=== PATIENT | male | born 1935 | race Caucasian/White ===

== ENCOUNTER 2017-01-14 18:50 | Emergency (ER) | payer OTHER, BC ==
[2017-01-14 19:01] VITALS: TEMP 98.2
--- NOTE | 2017-01-14 19:28 | EDPHY ---
HPI/HX/ROS/PE/MDM Narrative: CHIEF COMPLAINT: "I took a tumble," facial laceration, right rib pain HPI: The patient is an 81 y/o male complaining of a large facial laceration and right rib pain after falling while hiking about 45 minutes prior to arrival. He says his telescoping walking stick collapsed and he fell down striking the right side of his forehead on a rock and breaking his glasses. He did not lose consciousness and was able to hike back to the trailhead. He also complains of mild right rib pain, but denies acute shortness of breath. He denies vision changes, weakness, or paresthesias. He has a history that includes COPD and CAD , but only takes a baby aspirin daily and does not use anticoagulants. REVIEW OF SYSTEMS: Aside from elements discussed in the HPI, a comprehensive 10-point review of systems was reviewed and is negative. PMH: COPD, "heart block," "heart valve issue," CAD, sleep apnea, PE, cholecystectomy Prior medical records reviewed including admission 08/06/16 for abdominal pain. SOCIAL HISTORY: Former smoker PHYSICAL EXAM: General:Patient is alert, in no acute distress. ENT:Eyes are normal to inspection. Right eye normal. ENT inspection normal. Neck: Normal inspection. Full range of motion. Respiratory:No respiratory distress. Breath sounds normal bilaterally. Cardiovascular: Regular rate and rhythm. Strong peripheral pulses. Normal cap refill. Abdomen:The abdomen is nontender to palpation. There are no peritoneal signs. There are normal bowel sounds. Back: Normal to inspection. No tenderness to palpation. Skin: Normal color. No rash. Warm and dry. Bleeding 10cm total length T- shaped laceration extending down to skull over right eyebrow and forehead. 1cm laceration over anterior right knee Extremities: Right knee has significant effusion, other extremities are normal in appearance. Full range of motion. Neuro: Oriented x3. Normal motor function. Normal sensory function. ED Course: Study: CT of the Head Indication: Trauma Results: CT scan of the head was obtained. The results of the study are negative for intracranial hemorrhage. The study was read by the radiologist, Dr. Camp. I viewed the images myself on the PACS system. Study: CT of the Face Indication: Trauma Results: CT scan of the face was obtained. The results of the study are Right frontal soft tissue laceration. Subtle fracture along the edge of the right supraorbital rim. The study was read by the radiologist, Dr. Camp. I viewed the images myself on the PACS system. Study: Right rib x-rays Indication: Pain, trauma Results: Rib x-rays was obtained. The results of the study are no obvious fracture, no pneumothorax. Radiologist report pending. I viewed the images myself on the PACS system. Study: Right knee x-ray Indication: Trauma, pain Results: Knee x-ray was obtained. The results of the study are joint effusion, no fracture. Radiologist report pending. I viewed the images myself on the PACS system. Procedure: Laceration repair. Verbal consent was obtained from the patient. The deep T-shaped 10cm laceration on the right forehead above the brow was anesthetized using lidocaine. The wound was cleaned with standard ED protocol, draped and explored to its base with a gloved finger. Muscle involvement. No tendon injury was identified. The wound was repaired in multiple layer technique with 5 sutures 6-0 Vicryl and 15 sutures 5-0 Prolene. The wound repair was complex. The procedure was performed by myself, Dr. Loomis Patient will receive script for Keflex and will be placed in knee immobilizer and pressure wrap for right knee pain. MDM: This patient presents after mechanical fall while hiking. This has resulted in they severe deep laceration to his right forehead. This wound was extensively cleaned and repaired by myself. The edges are irregular and given the depth of soft tissue injury, which is essentially down to skull, I explained to the patient that scarring is likely, as is potential injury to facial muscle and/or nerve. We will place the patient on Keflex both for prophylaxis of this wound as well as the fact that there is a small nondisplaced facial bone fracture associated with it. Patient also has an impressive right knee effusion. This does not appear to be intra-articular and I suspect this is likely a consequence of being on aspirin. There is a small puncture wound associated with this which was irrigated and left open. The patient was placed in a compression wrap and given instructions to follow up with the plastic surgeon and orthopedist. CT is negative for intracranial injury. Chest x-ray reveals multiple rib fractures but no pneumothorax. Patient has some associated pain but there is no abdominal tenderness and he is breathing without difficulty. He will be given incentive spirometer. I discussed strict return precautions with the patient. I explained that he is high risk of complications from these multiple traumatic injuries given his age and comorbidities. I offered the patient admission but he declines. Addendum: I called the patient at home afternoon of 01/16 - he is doing well and will follow-up with his PCP this week. - Data Points Medications Given: Discontinued Medications Cephalexin HCl (Keflex) 500 mg PO EDNOW ONE PRN Reason: Protocol Stop: 01/14/17 21:04 Last Admin: 01/14/17 21:09 Dose: 500 mg General Time Seen by Provider: 01/14/17 18:55 Initial Vital Signs: Initial Vital Signs Temperature (C) 36.8 C 01/14/17 18:55 Heart Rate 82 01/14/17 18:55 Respiratory Rate 18 01/14/17 18:55 Blood Pressure 142/99 H 01/14/17 18:55 O2 Sat (%) 87 L 01/14/17 18:55 O2 Delivery Mode Room Air Allergies/Adverse Reactions: No Known Allergies Allergy (Unverified 05/05/16 07:29) Home Medications: Medication Instructions Recorded Aspirin EC [Aspirin EC 81 mg (*)] 81 mg PO DAILY #0 05/05/16 Atorvastatin Calcium [Lipitor 20 20 mg PO DAILY 05/05/16 mg (*)] Dexlansoprazole [Dexilant] 60 mg PO DAILY 05/05/16 Dutasteride [Avodart 0.5 MG (*)] 0.5 mg PO HS #0 05/05/16 Isosorbide Dinitrate [Isosorbide 20 mg PO DAILY 05/05/16 Dinitrate 20 mg (*)] Psyllium Husk [Metamucil] 0.52 gm PO DAILY 05/05/16 Tamsulosin HCl [Flomax 0.4 MG (*)] 0.8 mg PO HS #0 05/05/16 Breo Ellipta 100-25 Mcg Inh 1 puffs PO DAILY 07/22/16 Cephalexin [Keflex] 500 mg PO TID #21 cap 01/14/17 Departure - Departure Disposition: Home, Routine, Self-Care Clinical Impression: Forehead laceration, Laceration of right knee, Fracture of supraorbital rim, Contusion of rib on right side Condition: Good Instructions: Hydrocodone/Acetaminophen (By mouth), Laceration (ED), Acute Wound Care (ED), Rib Contusion (ED), Facial Laceration (ED) Additional Instructions: 1. Take Keflex (antibiotics) as prescribed. Be sure to complete the entire prescription. 2. Return in 7-10 days for suture removal. 3. Follow up with Dr. Keller, plastic surgeon, if you have persisting numbness or muscle weakness near your facial laceration. 4. Follow up with Dr. Barnhart in 3-5 days for reevaluation of your knee if you continue to have pain. 5. Return to the ED for symptoms of infection, severe pain, vision changes, or other worsening of condition. Referrals: Edmund Orozco MD [Primary Care Provider] - As per Instructions Justin Keller MD [Medical Doctor] - As per Instructions Prescriptions: Cephalexin [Keflex] 500 mg PO TID #21 cap Report Scribed for: Esvin Loomis Report Scribed by: Bina Villalobos Date of Report: 01/14/17 Time of Report: 19:28 Physician Review and Approval Statement: Portions of this note were transcribed by an ED scribe. I personally performed the history, physical exam, and medical decision making; and confirm the accuracy of the information in the transcribed note.
[2017-01-14] MEDS ORDERED: CEPHALEXIN 500 MG CAP PO ONE (21:03)
[2017-01-14] MEDS ORDERED: HYDROCOD/APAP 5/325 PREPACK#6 BTL TAKEHOME ONE (21:06)
[2017-01-14 22:32] VITALS: BP 152/95; PULSE 74; O2SAT 93
[2017-01-14 22:34] VITALS: RESP 16
== END 2017-01-14 22:33 | disposition home or self-care (01) ==
PROC: 0HQ1XZZ Repair Face Skin, External Approach (ICD-10-PCS; principal; 2017-01-14)
DX: S01.81XA Laceration without foreign body of other part of head, initial encounter (principal); S81.011A Laceration without foreign body, right knee, initial encounter; S02.81XA Fracture of other specified skull and facial bones, right side, initial encounter for closed fracture; S20.211A Contusion of right front wall of thorax, initial encounter; J44.9 Chronic obstructive pulmonary disease, unspecified; I25.10 Atherosclerotic heart disease of native coronary artery without angina pectoris; Z79.82 Long term (current) use of aspirin; Z87.891 Personal history of nicotine dependence; W01.198A Fall on same level from slipping, tripping and stumbling with subsequent striking against other object, initial encounter; Y92.89 Other specified places as the place of occurrence of the external cause; Y93.01 Activity, walking, marching and hiking
CPT/HCPCS: 12015; 70450; 70486; 71101; 73564; 99285; L1830

== ENCOUNTER 2017-01-17 09:22 | Emergency (ER) | payer OTHER, BC ==
[2017-01-17 09:38] VITALS: RESP 18
[2017-01-17 09:43] VITALS: TEMP 98.4
--- NOTE | 2017-01-17 09:50 | EDPHY ---
H & P Time Seen by Provider: 01/17/17 09:49 HPI/ROS: Chief complaint. Leg injury HPI. Patient is a 81-year-old male was seen in our emergency department 3 days ago after a fall while hiking. He has a rib fractures, big laceration to his head. He did have an x-ray of his knee which showed some foreign bodies and possible tendon rupture. However now he has increased swelling and bruising to the knee as well as to the right thigh. Some increased pain to this area. He is concerned because he has had previous blood clots and pulmonary embolus. ROS Constitutional. no fever/chills, no weakness Eyes. no problems with vision ENT. no sore throat, no nasal drainage Cardiovascular. no chest pain Respiratory. no shortness of breath, no cough Abdominal. no abdominal pain, no nausea/vomiting, no diarrhea . no problems urinating MS. Bruising and swelling that is increasing to the right knee and thigh Skin. no rash Lymph. no swollen glands Neuro. no headache, no dizziness, no difficulty walking or with speech Past Medical/Surgical History: Past medical history COPD, coronary artery disease, BPH, pulmonary embolus, angioplasty, repair of quadriceps tendon Social History: Single, nonsmoker, no alcohol Smoking Status: Former smoker Physical Exam: General Appearance: Alert well-developed male mild distress vital signs stable Eyes: Pupils equal and round no pallor or injection. ENT, sutures on the face appear to be healing without evidence of infection Respiratory: There are no retractions, lungs are clear to auscultation. Cardiovascular: Regular rate and rhythm. Gastrointestinal: Abdomen is soft and nontender, no masses, bowel sounds normal. Neurological: Awake and alert, sensory and motor exams grossly normal. Skin: Warm and dry, no rashes. Musculoskeletal: Neck is supple nontender. Extremities diffuse tenderness about the right knee. Medial swelling and bruising to the mid thigh Psychiatric: Patient is oriented X 3, there is no agitation. Constitutional: Initial Vital Signs Temperature (C) 36.9 C 01/17/17 09:36 Heart Rate 64 01/17/17 09:36 Respiratory Rate 18 01/17/17 09:36 Blood Pressure 127/72 H 01/17/17 09:36 O2 Sat (%) 91 L 01/17/17 09:36 O2 Delivery Mode Room Air Allergies/Adverse Reactions: No Known Allergies Allergy (Unverified 05/05/16 07:29) Home Medications: Medication Instructions Recorded Aspirin EC [Aspirin EC 81 mg (*)] 81 mg PO DAILY #0 05/05/16 Atorvastatin Calcium [Lipitor 20 20 mg PO DAILY 05/05/16 mg (*)] Dexlansoprazole [Dexilant] 60 mg PO DAILY 05/05/16 Dutasteride [Avodart 0.5 MG (*)] 0.5 mg PO HS #0 05/05/16 Isosorbide Dinitrate [Isosorbide 20 mg PO DAILY 05/05/16 Dinitrate 20 mg (*)] Psyllium Husk [Metamucil] 0.52 gm PO DAILY 05/05/16 Tamsulosin HCl [Flomax 0.4 MG (*)] 0.8 mg PO HS #0 05/05/16 Breo Ellipta 100-25 Mcg Inh 1 puffs PO DAILY 07/22/16 Cephalexin [Keflex] 500 mg PO TID #21 cap 01/14/17 Medical Decision Making - Diagnostics Imaging: Ultrasound of the right neck lower extremity shows no evidence of DVT. This is reviewed by me and discussed with Dr. Morocho X-ray of the right femur shows no evidence of fracture dislocation. There are still evidence of some retained foreign body superficially in the knee. ED Course/Re-evaluation: Examination of the knee I can't really find any obvious foreign bodies. Does have some scabs and superficial abrasions Differential Diagnosis: Patient remained stable. He and I discussed imaging study results, treatment plan, criteria for return importance of follow-up. He expresses understanding and agreement. I considered occult fracture, DVT, dislocation - Data Points Medications Given: Discontinued Medications Oxycodone/Acetaminophen (Percocet 5/325) 1 tab PO EDNOW ONE Stop: 01/17/17 10:13 Last Admin: 01/17/17 10:13 Dose: 1 tab Departure - Departure Disposition: Home, Routine, Self-Care Clinical Impression: Acute knee contusion Condition: Good Instructions: Contusion in Adults (ED) Additional Instructions: Keep leg elevated as much as possible. Activity as tolerated. Return for worsening symptoms. Sutures out of your face in 2-3 days Referrals: Edmund Orozco MD [Primary Care Provider] - 2-3 days without fail
[2017-01-17] MEDS ORDERED: OXYCODONE/APAP 5/325 TAB ONE (10:10)
[2017-01-17] MEDS ORDERED: OXYCODONE/APAP 5/325 TAB PO ONE (10:12)
[2017-01-17 12:12] VITALS: BP 144/69; PULSE 57; O2SAT 90
== END 2017-01-17 12:12 | disposition home or self-care (01) ==
DX: S80.01XD Contusion of right knee, subsequent encounter (principal); J44.9 Chronic obstructive pulmonary disease, unspecified; I25.10 Atherosclerotic heart disease of native coronary artery without angina pectoris; Z87.891 Personal history of nicotine dependence; Z79.82 Long term (current) use of aspirin; W19.XXXD Unspecified fall, subsequent encounter

== ENCOUNTER 2017-01-24 18:29 | Inpatient (IN) | payer OTHER, BC ==
--- NOTE | 2017-01-24 19:10 | EDPHY ---
H & P Time Seen by Provider: 01/24/17 19:08 HPI/ROS: CHIEF COMPLAINT: Right knee swelling and pain. HISTORY OF PRESENT ILLNESS: The patient is an 81-year-old male with a history of PE who presents with worsening right leg pain and swelling. The patient was initially seen 10 days ago in the ER after a fall while hiking. He was placed on Keflex at that time for a knee effusion, which he finished 2 days ago. The knee swelling is still present and he has pain when he tries to walk. He has no pain at rest. The swelling is significant enough to cause him difficulty bending his right leg. He denies fever, recent sickness, chest pain, shortness of breath. He takes a daily baby aspirin. REVIEW OF SYSTEMS: A complete 10-point review of systems was performed and is negative except for those items mentioned in the HPI. Past Medical/Surgical History: COPD, CAD, BPH, obstructive sleep apnea, PE. Social History: Former smoker. Smoking Status: Former smoker Physical Exam: General Appearance: Alert, no distress Eyes: Pupils equal and round, no conjunctival pallor or injection ENT, Mouth: Mucous membranes moist Neck: Normal inspection Respiratory: Lungs are clear to auscultation Cardiovascular: Regular rate and rhythm Gastrointestinal: Abdomen is soft and non-tender Neurological: A&O, nonfocal, normal gait Skin: Warm and dry, no rash Extremities: Right le+ pedal edema from lower thigh to foot with associated erythema on medial aspect of thigh and anterior aspect of lower leg. He has a scab over knee with surrounding erythema but no erythema on lateral aspect of knee. Knee joint effusion. Psychiatric: Mood and affect normal Constitutional: Initial Vital Signs Temperature (C) 36.7 C 01/24/17 18:43 Heart Rate 71 01/24/17 18:43 Respiratory Rate 18 01/24/17 18:43 Blood Pressure 141/85 H 01/24/17 18:43 O2 Sat (%) 92 01/24/17 18:43 O2 Delivery Mode Room Air Allergies/Adverse Reactions: No Known Allergies Allergy (Verified 01/24/17 18:42) Home Medications: Medication Instructions Recorded Aspirin EC [Aspirin EC 81 mg (*)] 81 mg PO DAILY #0 05/05/16 Atorvastatin Calcium [Lipitor 20 20 mg PO DAILY 05/05/16 mg (*)] Dexlansoprazole [Dexilant] 60 mg PO DAILY 05/05/16 Dutasteride [Avodart 0.5 MG (*)] 0.5 mg PO HS #0 05/05/16 Isosorbide Dinitrate [Isosorbide 20 mg PO HS 05/05/16 Dinitrate 20 mg (*)] Tamsulosin HCl [Flomax 0.4 MG (*)] 0.8 mg PO HS #0 05/05/16 Psyllium Husk (with Sugar) 1 each PO DAILY 01/24/17 [Metamucil Packet] Medical Decision Making - Diagnostics Imaging: Study: Ultrasound of the: RLE. Indication: Swelling, pain, trauma. Results: No major deep venous thrombosis right leg. The study was read by the radiologist, Dr. Baird. I viewed the images myself on the PACS system. Procedures: Procedure: Arthrocentesis. Indication: Evaluation for the possibility of septic joint. Risks, benefits, alternatives of the procedure were discussed with the patient and consent obtained. The patient was prepped and draped in the usual sterile fashion over the right knee joint. Local anesthesia was provided with 1% lidocaine. The joint space was entered with a 18 gauge needle and 10 cc of clear yellowish fluid was obtained. There were no complications. The procedure was performed by myself. ED Course/Re-evaluation: This patient presents with right lower extremity erythema and swelling as well as a knee effusion after a traumatic injury. Arthrocentesis performed by me to rule out a septic joint. Synovial fluid WBCs 6800, not consistent with septic joint. However he does have uric acid crystals on preliminary analysis and may have acute gout. RLE ultrasound obtained and reveals no evidence of DVT; no evidence of DVT. An IV was established and labs ordered. Ancef 1 g IV given for cellulitis. He does not meet SIRS criteria. 2046: Consulted with Dr. Rivera, hospitalist. She accepts admission. Differential Diagnosis: Differential diagnosis includes though it is not limited to fracture, dislocation, tendon disruption, neurovascular compromise. - Data Points Laboratory Results: Laboratory Results 01/24/17 19:43 01/24/17 19:43 01/24/17 01/24/17 19:42 19:40 Fl Pathologist Review MD David TYSON MD Synovial Crystals COMMENT H (NONE SEEN) Microbiology Results: MICROBIOLOGY 01/24/17 19:23 Synovial Fluid - Aspirate Gram Stain - Final 01/24/17 19:23 Synovial Fluid - Aspirate Anaerobic Culture - Preliminary Medications Given: Discontinued Medications Cefazolin Sodium/Dextrose (Ancef 1 Gm (Premix)) 50 mls @ 200 mls/hr IV EDNOW ONE PRN Reason: Protocol Stop: 01/24/17 20:59 Last Admin: 01/24/17 20:52 Dose: 50 mls Tiotropium [place] (Spiriva Handihaler) 18 mcg IH DAILY CRISTINO Stop: 07/24/17 08:59 Last Admin: 01/25/17 09:41 Dose: Not Given Departure - Departure Disposition: [facility] Acute Clinical Impression: Cellulitis Qualifiers: Site of cellulitis of extremity: lower extremity Laterality: right Condition: Fair Report Scribed for: Kristina Stevens Report Scribed by: Alban Dixon Date of Report: 01/24/17 Time of Report: 19:09 Physician Review and Approval Statement: 01/24/17 19:09 Portions of this note were transcribed by a biomedical equipment specialist. I personally performed a history, physical exam, medical decision making, and confirmed accuracy of information the transcribed note.
[2017-01-24 19:56] LABS: % IMMATURE GRANULYOCYTES 0.2 % (0.0-1.1); ABSOLUTE IMMATURE GRANULOCYTES 0.01 10^3/uL (0.00-0.10); ADD DIFF? NO; ADD MORPH? NO; ADD SCAN? NO; ATYPICAL LYMPHOCYTE FLAG 10 (0-99); FRAGMENT RBC FLAG 0 (0-99); HEMATOCRIT 39.1 % (40.0-51.0); HEMOGLOBIN 13.1 g/dL (13.7-17.5); LEFT SHIFT FLG 0 (0-99); LIPEMIA HEMOLYSIS FLAG 80 (0-99); MEAN CELL HEMOGLOBIN 33.5 pg (27.9-34.1); MEAN CELL HEMOGLOBIN CONCENTR. 33.5 g/dL (32.4-36.7); MEAN PLATELET VOLUME 11.5 fL (8.7-11.7); PLATELET CLUMPS FLAG 10 (0-99); PLATELET COUNT 219 10^3/uL (150-400); RED BLOOD CELL COUNT 3.91 10^6/uL (4.40-6.38); RED CELL DISTRIBUTION WIDTH 14.4 % (11.5-15.2)
[2017-01-24 20:21] LABS: ANION GAP 10 mEq/L (8-16); CALCIUM 9.1 mg/dL (8.5-10.4); CARBON DIOXIDE 27 mEq/l (22-31); CHLORIDE 106 mEq/L (97-110); CREATININE 1.1 mg/dL (0.7-1.3); GLOMERULAR FILTRATION RATE > 60; GLUCOSE 102 mg/dL (70-100); POTASSIUM 4.3 mEq/L (3.5-5.2); SODIUM 143 mEq/L (134-144)
[2017-01-24] MEDS ORDERED: ONDANSETRON 4 MG/2 ML VIAL IVP PRN (20:50)
[2017-01-24] MEDS ORDERED: ACETAMINOPHEN 325 MG TAB PO PRN (20:50)
[2017-01-24] MEDS ORDERED: ONDANSETRON DISINTEGRATING 4 MG TAB PO PRN (20:50)
[2017-01-24 21:43] LABS: WBC, SYNOVIAL FLUID 6883 /mm3 (0-150)
[2017-01-24] MEDS ORDERED: ALBUTEROL 3 ML DEYVIAL IH PRN (23:59)
[2017-01-25] MEDS: VANCOMYCIN 1.25 GM in D5W 250 ML IV SCH ×2 (02:13→12:58)
--- NOTE | 2017-01-25 02:32 | PDGENHP ---
History and Physical - Chief Complaint right knee pain, fall 2 weeks ago - History of Present Illness 81 yo male with h/o COPD, CAD and ALISA presents to ED for the 3rd time since a fall while hiking on 01/14/2017. He was hiking in [place] and tumbled [place]. He suffered a eric-orbital laceration and had a negative head CT in the ED that day. He also suffered 5 right rib fractures and a right knee injury. His right knee pain was initially localized to the medial distal thigh. Initial knee xray showed changes consistent with his previous quadriceps tendon rupture, along with a medial hematoma. He continues to have eric-patellar swelling and medial pain. He was treated with Keflex for 7 days with no significant improvement. He has redness and persistent swelling of right knee and distal RLE, causing difficulty walking. He denies instability or locking. No fevers or chills. In the ED, he underwent arthrocentesis and was given 1 g IV Ancef. He is admitted to the hospital for further management. With respect to his COPD, he denies home O2 use and doesn't use inhalers regularly. He states his baseline O2 sat is in the upper 80's, but he refuses to use home oxygen. He currently denies CP, SOB, cough or fever. He also has a h/o ALISA, but hasn't used his CPAP in 10 days and "does fine without it". History Information - Allergies/Home Medication List Allergies/Adverse Reactions: No Known Allergies Allergy (Verified 01/24/17 18:42) Home Medications: Aspirin EC [Aspirin EC 81 mg (*)] 81 mg PO DAILY #0 05/05/16 [Last Taken ] Atorvastatin Calcium [Lipitor 20 mg (*)] 20 mg PO DAILY 05/05/16 [Last Taken ] Dexlansoprazole [Dexilant] 60 mg PO DAILY 05/05/16 [Last Taken 01/24/17] Dutasteride [Avodart 0.5 MG (*)] 0.5 mg PO HS #0 05/05/16 [Last Taken 01/23/17] Isosorbide Dinitrate [Isosorbide Dinitrate 20 mg (*)] 20 mg PO HS 05/05/16 [ Last Taken 01/23/17] Tamsulosin HCl [Flomax 0.4 MG (*)] 0.8 mg PO HS #0 05/05/16 [Last Taken ] Psyllium Husk (with Sugar) [Metamucil Packet] 1 each PO DAILY 01/24/17 [Last Taken 01/24/17] I have personally reviewed and updated: family history, medical history, social history, surgical history - Past Medical History coronary artery disease, COPD Additional medical history: BPH, ALISA, h/o PE - Surgical History Additional surgical history: right quadriceps tendon repair - Family History Positive for: non-pertinent - Social History Smoking Status: Former smoker Review of Systems ROS: 10pt was reviewed & negative except for what was stated in HPI & below Physical Exam Temp Pulse Resp BP Pulse Ox 36.7 C 60 16 138/68 H 95 01/24/17 22:01 01/24/17 22:20 01/24/17 22:20 01/24/17 22:20 01/24/17 22:20 O2 (L/minute) 3 Constitutional: no apparent distress Eyes: PERRL Ears, Nose, Mouth, Throat: moist mucous membranes Cardiovascular: regular rate and rhythym Respiratory: no respiratory distress, clear to auscultation, reduced air movement Gastrointestinal: normoactive bowel sounds, soft, non-tender abdomen Skin: warm Musculoskeletal: other (RLE with marked pre and eric-patellar edema, with palpable hematoma of medial distal femur region, associated with erythema extending to ankle, 2+ LE pitting edema RLE) Neurologic: AAOx3 Psychiatric: interacting appropriately Lab Data & Imaging Review 01/25/17 05:38 01/24/17 19:43 WBC 5.02 10^3/uL (3.80-9.50) 01/24/17 19:43 RBC 3.91 10^6/uL (4.40-6.38) L 01/24/17 19:43 Hgb 13.1 g/dL (13.7-17.5) L 01/24/17 19:43 Hct 39.1 % (40.0-51.0) L 01/24/17 19:43 MCV 100.0 fL (81.5-99.8) H 01/24/17 19:43 MCH 33.5 pg (27.9-34.1) 01/24/17 19:43 MCHC 33.5 g/dL (32.4-36.7) 01/24/17 19:43 RDW 14.4 % (11.5-15.2) 01/24/17 19:43 Plt Count 219 10^3/uL (150-400) 01/24/17 19:43 MPV 11.5 fL (8.7-11.7) 01/24/17 19:43 Neut % (Auto) 59.4 % (39.3-74.2) 01/24/17 19:43 Lymph % (Auto) 20.3 % (15.0-45.0) 01/24/17 19:43 [place] % (Auto) 14.9 % (4.5-13.0) H 01/24/17 19:43 Eos % (Auto) 4.6 % (0.6-7.6) 01/24/17 19:43 Baso % (Auto) 0.6 % (0.3-1.7) 01/24/17 19:43 Nucleat RBC Rel Count 0.0 % (0.0-0.2) 01/24/17 19:43 Absolute Neuts (auto) 2.98 10^3/uL (1.70-6.50) 01/24/17 19:43 Absolute Lymphs (auto) 1.02 10^3/uL (1.00-3.00) 01/24/17 19:43 Absolute Monos (auto) 0.75 10^3/uL (0.30-0.80) 01/24/17 19:43 Absolute Eos (auto) 0.23 10^3/uL (0.03-0.40) 01/24/17 19:43 Absolute Basos (auto) 0.03 10^3/uL (0.02-0.10) 01/24/17 19:43 Absolute Nucleated RBC 0.00 10^3/uL (0-0.01) 01/24/17 19:43 Immature Gran % 0.2 % (0.0-1.1) 01/24/17 19:43 Immature Gran # 0.01 10^3/uL (0.00-0.10) 01/24/17 19:43 Sodium 143 mEq/L (134-144) 01/24/17 19:43 Potassium 4.3 mEq/L (3.5-5.2) 01/24/17 19:43 Chloride 106 mEq/L (97-110) 01/24/17 19:43 Carbon Dioxide 27 mEq/l (22-31) 01/24/17 19:43 Anion Gap 10 mEq/L (8-16) 01/24/17 19:43 BUN 16 mg/dL (7-23) 01/24/17 19:43 Creatinine 1.1 mg/dL (0.7-1.3) 01/24/17 19:43 Estimated GFR > 60 01/24/17 19:43 Glucose 102 mg/dL (70-100) H 01/24/17 19:43 Calcium 9.1 mg/dL (8.5-10.4) 01/24/17 19:43 Synovial Source SYNOVIAL 01/24/17 19:42 Synovial Color YELLOW (CLS/PALE YL) H 01/24/17 19:42 Synovial Appearance CLOUDY (CLEAR) H 01/24/17 19:42 Synovial WBC 6883 /mm3 (0-150) H 01/24/17 19:42 Synovial RBC 3420 /mm3 (0-0) H 01/24/17 19:42 Synovial Neutrophils 71 % (0-25) H 01/24/17 19:42 Synovial Lymphocytes 1 % 01/24/17 19:42 Synov Monos/Macrophage 28 % 01/24/17 19:42 Assessment & Plan Assessment: Pre-patellar bursitis +/- hematoma and suspected cellulitis in setting of trauma - less likely septic joint. LE duplex neg for DVT. S/P arthrocentesis, no orgs on gram stain. Cx pending, though fluid analysis not terribly impressive for septic joint. Discussed case with Dr. Martínez ortho. They will consult today. MRI ordered to eval for fluid collection / hematoma or tendinous / ligamentous injury (+h/o quadriceps tendon rupture s/p repair). Given failure of Keflex, will cover with Vanco for now. ID consult requested. PT/OT evals planned. COPD - Reviewed CXR from 09/2016, which showed hyperexpansion. Currently, no e/ o acute exacerbation, though requiring 2-3 LPM O2. He reports refusing home oxygen and notes he usually runs in the high 80's on room air. Hypoxemia may have contributed to his fall in [employer]. Will start Spiriva and give prn nebs. Acute / ?chronic hypoxemia - No tachycardia or pleuritic symptoms, but if O2 requirement increases or he develops more symptoms, would consider ruling out PE. He may qualify for home oxygen but sounds like he won't accept this. CAD - stable, continue statin. Hold ASA for now until imaging and further diagnostics / plan confirmed regarding knee injury. BPH - continue Avodart, Flomax ALISA - he has not been using his CPAP at home, discussed importance of treating his ALISA. He does not want CPAP here, will continue O2 as needed. H/O PE - traumatic event several years ago. LE duplex neg for DVT here. Full code DVT PPLX - Lovenox Disposition - Admit to inpatient as will likely require >48 hrs hospitalization due to RLE injury and possible infection.
[2017-01-25 06:11] LABS: ADD DIFF? NO; ADD MORPH? NO; ADD SCAN? NO; ATYPICAL LYMPHOCYTE FLAG 10 (0-99); FRAGMENT RBC FLAG 0 (0-99); HEMATOCRIT 36.8 % (40.0-51.0); HEMOGLOBIN 12.3 g/dL (13.7-17.5); LEFT SHIFT FLG 0 (0-99); LIPEMIA HEMOLYSIS FLAG 80 (0-99); MEAN CELL HEMOGLOBIN 33.3 pg (27.9-34.1); MEAN CELL HEMOGLOBIN CONCENTR. 33.4 g/dL (32.4-36.7); MEAN CELL VOLUME 99.7 fL (81.5-99.8); MEAN PLATELET VOLUME 11.4 fL (8.7-11.7); PLATELET CLUMPS FLAG 0 (0-99); PLATELET COUNT 193 10^3/uL (150-400); RED BLOOD CELL COUNT 3.69 10^6/uL (4.40-6.38); RED CELL DISTRIBUTION WIDTH 14.3 % (11.5-15.2)
[2017-01-25] MEDS ORDERED: TIOTROPIUM INHALER 18 MCG/DOSE 5 DOSE/MDI IH SCH (09:00)
[2017-01-25] MEDS ORDERED: NON-FORMULARY NEW DRUG (Dexlansoprazole [Dexilant] 60 MG) PO SCH (09:00)
[2017-01-25] MEDS ORDERED: TAMSULOSIN HCL 0.4 MG CAP PO SCH ×2 (10:46→21:00)
[2017-01-25] MEDS ORDERED: DUTASTERIDE 0.5 MG CAP PO SCH ×2 (10:46→21:00)
[2017-01-25] MEDS: ATORVASTATIN CALCIUM 20 MG TAB PO SCH (11:07)
[2017-01-25] MEDS: guaiFENesin 600 MG TAB.ER PO SCH ×2 (11:08→21:15)
[2017-01-25] MEDS: PANTOPRAZOLE SODIUM 40 MG TAB PO SCH (11:08)
[2017-01-25] MEDS: ENOXAPARIN 40 MG/0.4 ML SYR SC SCH (11:18)
[2017-01-25] MEDS: DUTASTERIDE 0.5 MG CAP PO SCH (11:22)
[2017-01-25] MEDS: TAMSULOSIN HCL 0.4 MG CAP PO SCH (11:22)
--- NOTE | 2017-01-25 12:48 | HOSPPROG ---
Hospitalist Progress Note Assessment/Plan: 81 yo M with hx of COPD, CAD admitted with right knee pain in the setting of fall 2 weeks prior with large hematoma and partial quadriceps tendon tear # knee hematoma and partial quadriceps tear: s/p fall about 2 weeks ago with ongoing pain and difficulty with mobility, MRI not showing any other acute findings and arthrocentesis not c/w infection. Will d/w ortho to see if any further intervention indicated. PT/OT involved. # pre patellar bursitis: in the setting of recent fall and injuries as above. He is non septic appearing however he notes that his sxs got worse after completing his last course of abx. Will continue IV vancomycin for now. Synovial cultures pending. # multiple rib fractures: patient with 5 right sided rib fractures s/p fall 2 weeks ago, will continue IS, does have cough but no other s/s of PNA at this time. Will get repeat CXR in am. # chronic copd with chronic hypoxic respiratory failure: patient reports o2 sats in the 80s at home, currently in low 90s on 3L, patient refuses to wear o2 at home, has refused inhalers as well. No evidence of acute exacerbation. # BPH: with continue avodart and tamsulosin, notes continued urinary issues # CAD: no e/o acute issues # diego: with intermittent use of cpap # dispo: IP status, patient will need > 48 hours stay for eval/mgmt of above given limited mobility and inability to perform ADLs safely Patient new to my care. Old records reviewed and summarized as above. Care plan reviewed with ortho. Subjective: no significant overnight events, patient continues to have pain in the medial aspect of his right thigh and difficulty ambulating Objective: Vital Signs Temp Pulse Resp BP Pulse Ox 36.4 C 62 16 137/73 H 90 L 01/25/17 04:32 01/25/17 04:32 01/25/17 04:32 01/25/17 04:32 01/25/17 04:32 Laboratory Results 01/25/17 05:38 01/24/17 01/25/17 01/26/17 05:59 05:59 05:59 Intake Total 700 Output Total 50 Balance 650 elderly awake alert nad anicteric op clear rrr no mrg cta b with dec bs throughout wet cough soft nt nd RLE with 1+ pitting edema, ecchymoses and edema around right knee with area of induration in distal medial femur warm dry well perfused otherwise oriented appropriate - Time Spent With Patient Time Spent with Patient: greater than 35 minutes Time Spent with Patient: Greater than 35 minutes spent on this patients care, greater than 50% of time spent counseling, educating, and coordinating care regarding the above mentioned plan. ICD10 Worksheet Patient Problems: Problems Problem Status Onset Cholecystitis with cholelithiasis Acute Cellulitis of right knee Acute
--- NOTE | 2017-01-25 15:24 | PDCONSULT ---
Guest Experience Representative Note: Jesse Myers is a pleasant 81 yo male, being evaluated for r/o septic right knee. Patient reports that he fell last tuesday when a stair case collapsed under him causing him to fall down approximately 6 feel and hit his forehead, and inside of right knee. Patient reports that he was fine at the time, drove himself to the ED where he was evaluated, had forehead laceration stitched up, and patient reports they "washed out a small poke hole on" on his right knee. Over the next week patient reports that he noticed the knee swell and become red /purple and thought it was a "hematoma." Patient returned back to the ED where they performed an Ultrasound which did not demonstrate any DVT. but ED was concerned for septic knee, so they tapped his knee and admitted him for IV abx. throughout this all, patient states he did not have much pain except during the first 2 days after the fall, and only lacked knee rom due to the swelling of the "superficial hematoma." patient denies fevers, chills, n/v/d/c. patient denies any sob worse than his base line. Past Medical history: CAD, SOB at baseline, COPD, heart valve issue (patient is unsure which valve) Surgical history: right quad repair in 2012, cholesystectomy, left ankle orif Family history: Denies allergies: NKDA Home meds: Aspirin EC [Aspirin EC 81 mg (*)] 81 mg PO DAILY #0 05/05/16 [Last Taken 01/24] Atorvastatin Calcium [Lipitor 20 mg (*)] 20 mg PO DAILY 05/05/16 [Last Taken ] Dexlansoprazole [Dexilant] 60 mg PO DAILY 05/05/16 [Last Taken 01/24/17] Dutasteride [Avodart 0.5 MG (*)] 0.5 mg PO HS #0 05/05/16 [Last Taken 01/23/17] Isosorbide Dinitrate [Isosorbide Dinitrate 20 mg (*)] 20 mg PO HS 05/05/16 [ Last Taken 01/23/17] Tamsulosin HCl [Flomax 0.4 MG (*)] 0.8 mg PO HS #0 05/05/16 [Last Taken ] Psyllium Husk (with Sugar) [Metamucil Packet] 1 each PO DAILY 01/24/17 [Last Taken 01/24/17] labs reviewed: blood cultures pending, synovial fluid not consistent w/ infection, cbc w/ down trending wbc physical exam: w/ 1+ pitting edema, large area of ecchymosis and edema surrounding right knee w/ area of induration in distal femur, active rom: 0-80 without signifcant pain, passive rom: guarded0-90, nvid w/ brisk cap refill, 2+ pt/dp pulses assessment/plan: 81 yo m s/p fall 2 weeks ago, now with large right knee hematoma, orthopedics consulted for r/o septic knee and evaluate quad tendon for possible repair -MRI demonstrates: large subcutaneous hematoma, partial tear of the deep fibers of the quadriceps tendon at the upper pole of the patellar attachment -continue working with physical therapy for transfer training -recommend continued IS for cough addendum. painful sub Q hematoma. gentle knee ROM. WBAT. fall risk precautions. MRI not concerrning for infection at this point. Follup clinically. fu in my clinic in 2 weeks for repeat clinical exam Dr Delfina Lenz for Orthopedics [id number]
[2017-01-25] MEDS ORDERED: ISOSORBIDE DINITRATE 20 MG TAB PO SCH (21:00)
--- NOTE | 2017-01-26 01:29 | CPEKG ---
Heart Rate: 57 RR Interval: 1053 P-R Interval: 224 QRSD Interval: 94 QT Interval: 424 QTC Interval: 413 P Broseley: 34 QRS Broseley: 46 T Wave Broseley: -15 EKG Severity - ABNORMAL ECG - EKG Impression: SINUS RHYTHM EKG Impression: FIRST DEGREE AV BLOCK EKG Impression: PROBABLE ANTEROLATERAL INFARCT, OLD EKG Impression: NONSPECIFIC T ABNORMALITIES, INFERIOR LEADS Electronically Signed By: Breanne Iniguze 27-Jan-2017 04:17:20
[2017-01-26] MEDS: VANCOMYCIN 1.25 GM in D5W 250 ML IV SCH (02:14)
[2017-01-26 06:17] LABS: ANION GAP 9 mEq/L (8-16); CALCIUM 7.7 mg/dL (8.5-10.4); CARBON DIOXIDE 22 mEq/l (22-31); CHLORIDE 111 mEq/L (97-110); CREATININE 0.7 mg/dL (0.7-1.3); GLOMERULAR FILTRATION RATE > 60; GLUCOSE 93 mg/dL (70-100); POTASSIUM 3.4 mEq/L (3.5-5.2); SODIUM 142 mEq/L (134-144)
[2017-01-26] MEDS: DUTASTERIDE 0.5 MG CAP PO SCH (09:29)
[2017-01-26] MEDS: guaiFENesin 600 MG TAB.ER PO SCH (09:29)
[2017-01-26] MEDS: PANTOPRAZOLE SODIUM 40 MG TAB PO SCH (09:30)
[2017-01-26] MEDS: TAMSULOSIN HCL 0.4 MG CAP PO SCH (09:30)
[2017-01-26] MEDS: ATORVASTATIN CALCIUM 20 MG TAB PO SCH (09:30)
[2017-01-26] MEDS ORDERED: VANCOMYCIN HCL/NORMAL SALINE 250 ML IV SCH (14:00)
[2017-01-26] MEDS: ENOXAPARIN 40 MG/0.4 ML SYR SC SCH (14:38)
--- NOTE | 2017-01-26 17:04 | HOSPPROG ---
Hospitalist Progress Note Assessment/Plan: 81 yo M with hx of COPD, CAD admitted with right knee pain in the setting of fall 2 weeks prior with large hematoma and partial quadriceps tendon tear # knee hematoma and partial quadriceps tear: s/p fall about 2 weeks ago with ongoing pain and difficulty with mobility, MRI not showing any other acute findings and arthrocentesis not c/w infection. Ortho evaluated and recommending knee immobilizer, f/u in clinic in 1-2 weeks. Patient refuses immobilizer. # pre patellar bursitis: in the setting of recent fall and injuries as above. non septic, mri not c/w infection, tap without e/o infection. Will dc vanco and treat with another few days of keflex. Cultures negative. # multiple rib fractures: patient with 5 right sided rib fractures s/p fall 2 weeks ago, will continue IS, repeat cxr showing likely atelectasis rather than pna, no real pain that he is complaining of at this point. # chronic copd with chronic hypoxic respiratory failure: patient reports o2 sats in the 80s at home, 86% here on RA and mid 90s on 3-4L. Would benefit from home o2 if he is amenable. No e/o acute exacerbation at this time and patient declines inhalers. # BPH: with continue avodart and tamsulosin, notes continued urinary issues # CAD: no e/o acute issues # diego: with intermittent use of cpap # dispo: IP status, patient will need > 48 hours stay for eval/mgmt of above given limited mobility and inability to perform ADLs safely Subjective: no significant overnight events, patient states he does not want to wear the brace that ortho brought for him, he is walking ok without it Objective: Vital Signs Temp Pulse Resp BP Pulse Ox 36.9 C 55 L 16 129/71 H 86 L 01/26/17 07:27 01/26/17 07:27 01/26/17 07:27 01/26/17 07:27 01/26/17 14:14 Laboratory Results 01/25/17 05:38 01/26/17 05:45 01/25/17 01/26/17 01/27/17 05:59 05:59 05:59 Intake Total 700 2860 Output Total 50 1950 850 Balance 650 910 -850 elderly awake alert nad anicteric op clear rrr no mrg cta b with dec bs throughout wet cough soft nt nd RLE with 1+ pitting edema, ecchymoses and edema around right knee with area of induration in distal medial femur warm dry well perfused otherwise oriented appropriate - Time Spent With Patient Time Spent with Patient: greater than 35 minutes Time Spent with Patient: Greater than 35 minutes spent on this patients care, greater than 50% of time spent counseling, educating, and coordinating care regarding the above mentioned plan. ICD10 Worksheet Patient Problems: Problems Problem Status Onset Cellulitis Acute Cholecystitis with cholelithiasis Acute
[2017-01-26 17:28] VITALS: BP 124/73; PULSE 62; RESP 12; TEMP 98.2; O2SAT 88
[2017-01-26] MEDS ORDERED: CEPHALEXIN 500 MG CAP PO SCH (18:00)
--- NOTE | 2017-01-26 18:14 | PDDCSUM ---
Discharge Summary Discharge Summary: Dates of service 01/25-01/26/17 Discharge dx: # knee hematoma # partial quad tendon rupture # pre patellar bursitis # rib fxs # chronic copd and chronic resp failure consultations: ortho, ID Procedures: knee arthrocentesis, lower extremity MRI, LE US Hospital course by problem: # knee hematoma and partial quadriceps tear: plan for knee immobilizer, f/u with ortho in 1 week # pre patellar bursitis: in the setting of recent fall and injuries as above. non septic, mri not c/w infection, tap without e/o infection. Will dc vanco and treat with another few days of keflex. Cultures negative. # multiple rib fractures: patient with 5 right sided rib fractures s/p fall 2 weeks ago, will continue IS, repeat cxr showing likely atelectasis rather than pna, no real pain that he is complaining of at this point. # chronic copd with chronic hypoxic respiratory failure: patient reports o2 sats in the 80s at home, 86% here on RA and mid 90s on 3-4L. Would benefit from home o2 if he is amenable. No e/o acute exacerbation at this time and patient declines inhalers. # BPH: with continue avodart and tamsulosin, notes continued urinary issues # CAD: no e/o acute issues # diego: with intermittent use of cpap dc home f/u with ortho/pcp >35 minutes spent in dc more than half in face to face cousneling of gay regarding dc plan and f/u care
--- NOTE | 2017-01-26 19:28 | GCON ---
INFECTIOUS DISEASE CONSULTATION DATE OF CONSULTATION: 01/26/2017 REFERRING PHYSICIAN: Oumou Downey MD REASON FOR CONSULTATION: Possible prepatellar septic bursitis. HISTORY OF PRESENT ILLNESS: Patient is an 81-year-old male who [place]. The patient had a periorbital laceration on the right as well as multiple rib fractures and a right knee injury. The patient was seen in the emergency department shortly af ter his fall. He underwent suturing of the periorbital laceration and was prescribed 7 days of ceph alexin based on concerns about infection as this laceration was deep to the bone. The patient descr ibes having persistent knee pain and swelling with a violaceous and erythematous hue. Most of his p ain is more prominent over the medial aspect of the knee and thigh. The patient was admitted for fu rther evaluation of these complaints and an MRI was performed, which showed a subcutaneous hematoma over the anteromedial aspect of the right knee as well as a partial tear of the quadriceps tendon. Arthrocentesis was performed, yielding 6883 white blood cells, 3420 red blood cells with 71% neutrop hils; rare intracellular monosodium urate crystals were also seen. Blood cultures and culture of th e synovial fluid have remained negative. The patient was started empirically on vancomycin with con cern for cellulitis, septic arthritis or prepatellar septic bursitis. He has not experienced fevers or chills. His white blood cell count has been normal. Given the above findings, I am now asked t o assist in his ongoing management. PAST MEDICAL HISTORY: Coronary artery disease, COPD, obstructive sleep apnea, history of pulmonary embolus, BPH. PAST SURGICAL HISTORY: Cholecystectomy, right quadriceps tendon repair. CURRENT MEDICATIONS: Vancomycin 1 g IV q.12 hours, Protonix 40 mg p.o. daily, Flomax 0.8 mg p.o. da blessing, isosorbide 20 mg p.o. at bedtime, Mucinex 1200 mg p.o. b.i.d., Lovenox 40 mg subcu daily, Avoda rt 0.5 mg p.o. daily, Lipitor 20 mg p.o. daily. ALLERGIES: No known drug allergies. SOCIAL HISTORY: Patient is a former smoker. Occasional alcohol intake. No drug use. FAMILY HISTORY: Coronary artery disease. REVIEW OF SYSTEMS: Outside that noted in the HPI, the remainder of a 10 system review is unremarkab le. PHYSICAL EXAMINATION: VITAL SIGNS: Temperature 36.8, heart rate 62, respiratory rate 12, blood pre ssure 124/73, oxygen saturation 88% on room air. GENERAL: Patient is well nourished, well develope d in no acute distress. He appears nontoxic. HEENT: There is no scleral icterus, conjunctival inj ection or conjunctival petechiae. Oropharynx is clear without lesions. Dentition is in fair repair . There is no thrush present. There is no nasal discharge. The laceration above the right eye is healing well. NECK: Supple without lymphadenopathy or thyromegaly. CHEST: Clear to auscultation bilaterally without adventitious sounds. The respiratory effort is normal. CARDIOVASCULAR: Regula r rate and rhythm with a 2/6 systolic murmur heard at the left upper and lower sternal borders. No gallops or rubs noted. ABDOMEN: Soft, nontender, nondistended. There is no palpable organomegaly. Bowel sounds are present. MUSCULOSKELETAL: The right knee shows presence of effusion with overly ing ecchymoses which extends across the medial thigh and posterior thigh as well as into the posteri or calf; there is a faint erythema associated with these violaceous changes with mild warmth and kathleen e tenderness over the knee. There is no irritability with range of motion of the knee joint. LYMPH ATICS: There are no cervical or supraclavicular nodes; there is no lymphangitis in the right thigh. SKIN: See musculoskeletal exam; there are also a few abrasions over the right knee. There are no stigmata of endocarditis. Skin is warm and dry to touch. NEUROLOGIC: Patient is alert and intera cts appropriately with the examiner. Cranial nerves 2-12 are grossly intact. Muscle tone and bulk are normal. LABORATORY DATA: White blood cell count 4.3, hematocrit 36.8, platelets 193, neutrophils 54%, lymph ocytes 24%. Serum creatinine is 0.7. Vancomycin trough is 9.2. Synovial fluid as outlined in Hist ory of Present Illness. Blood cultures x2 sets and synovial fluid cultures are all negative. MRI o f the right lower extremity as described in the History of Present Illness. IMPRESSION: Right lower extremity hematoma: Suspect the clinical findings and radiographic finding s are largely due to hematoma after traumatic injury. The absence of fever, leukocytosis and negati ve cultures as well as clinical examination argue against superimposed infection. Favor discontinua tion of vancomycin and observation off antibiotics at this point in time. RECOMMENDATIONS: 1. Discontinue vancomycin. 2. Continue supportive care for right lower extremity. 3. Observe clinically over time to ensure no deterioration after stopping antibiotics. Thank you for this consultation. We will continue to follow the patient. /[id number]/MODL
--- NOTE | 2017-01-26 21:03 | SOAPPROG ---
SOAP Progress Note Assessment/Plan: Assessment: 81 yo male s/p fall, now with large subcutaneous hematoma proximal and medial to right knee along with partial tear of deep fibers of quadriceps muscle. -dvt proph: continue lovenox 40 mg qd sub q -pt/ot clearence for discharge home with walker, finishing supervisor plastic sheets, and sock assist -pain control per primary team -proph- continue IS and respiratory therapy for cough as patient is high risk for developing pneumonia or atelectasis given multiple rib fractures and hisotory of COPD and SOB at baseline -no more orthopedic intervention at this time, patient to follow up with Nagi Valenzuela PA-C at [facility] in 2 weeks for recheck Plan: 01/26/17 21:01 01/26/17 21:03 Subjective: Jesse denies any issues overnight, reports he is experiencing a bit more pain in his knee, but relates this to the fact that he is using his knee, and putting weight on his foot, when he is resting in bed, his pain is well controlled. patient denies any fevers, chills, n/v/d/c, denies numbness/ tingling in foot Objective: Vital Signs Temp Pulse Resp BP Pulse Ox 36.8 C 62 12 124/73 H 88 L 01/26/17 17:26 01/26/17 17:26 01/26/17 17:26 01/26/17 17:26 01/26/17 17:26 Laboratory Results 01/25/17 05:38 01/26/17 05:45 01/25/17 01/26/17 01/27/17 05:59 05:59 05:59 Intake Total 700 2860 300 Output Total 50 1950 1750 Balance 650 910 -1450 RLE: knee immobilizer in place, large area of ecchymosis surrounding patella and spreading medially, no knee rom assessed, +1 pitting edema distally to knee , nvid w/ brisk cap refill, pt/dp 2+, full ankle and digital rom ICD10 Worksheet Patient Problems: Problems Problem Status Onset Cellulitis Acute Cholecystitis with cholelithiasis Acute
== END 2017-01-26 20:14 | disposition home health service (06) | DRG 558 ==
LOC: F1N 22:18
PROVIDERS: ADMIT Internal Medicine; ATTEND Internal Medicine
PROC: 0S9C3ZX Drainage of Right Knee Joint, Percutaneous Approach, Diagnostic (ICD-10-PCS; principal; 2017-01-24)
DX: M70.41 Prepatellar bursitis, right knee (principal); J96.11 Chronic respiratory failure with hypoxia; S80.01XD Contusion of right knee, subsequent encounter; S86.111D Strain of other muscle(s) and tendon(s) of posterior muscle group at lower leg level, right leg, subsequent encounter; S22.41XD Multiple fractures of ribs, right side, subsequent encounter for fracture with routine healing; J44.9 Chronic obstructive pulmonary disease, unspecified; I25.10 Atherosclerotic heart disease of native coronary artery without angina pectoris; G47.33 Obstructive sleep apnea (adult) (pediatric); N40.0 Benign prostatic hyperplasia without lower urinary tract symptoms; Z86.711 Personal history of pulmonary embolism; W19.XXXD Unspecified fall, subsequent encounter; Z87.891 Personal history of nicotine dependence; Z79.82 Long term (current) use of aspirin; Z91.14 Patient's other noncompliance with medication regimen
CPT/HCPCS: 97116-GP; 97161-GP; 97166-GO; 97530-GP; 97535-GO; G8978-GP-CI; G8979-GP-CI; G8980-GP-CI; G8987-GO-CI; G8988-GO-CH; J0690; J1650; J3370

== ENCOUNTER → 2017-06-13 | Outpatient (CLI) | payer OTHER, BC | LOC: BHFA 13:15 | PROVIDERS: ATTEND Internal Medicine Cardiovascular Disease | DX: I25.10 Atherosclerotic heart disease of native coronary artery without angina pectoris (principal) ==

== ENCOUNTER 2018-02-02 12:19 | Emergency (ER) | payer OTHER, BC ==
[2018-02-02 12:25] VITALS: RESP 18
--- NOTE | 2018-02-02 12:36 | CPEKG ---
Heart Rate: 67 RR Interval: 896 P-R Interval: 212 QRSD Interval: 94 QT Interval: 408 QTC Interval: 431 P Lytton: 23 QRS Lytton: 26 T Wave Lytton: 6 EKG Severity - ABNORMAL ECG - EKG Impression: SINUS RHYTHM EKG Impression: ANTEROLATERAL INFARCT, OLD Electronically Signed By: Jesse Marques 02-Feb-2018 15:47:22
[2018-02-02 13:02] LABS: PLATELET COUNT 165 10^3/uL (150-400)
--- NOTE | 2018-02-02 13:07 | EDPHY ---
H & P Time Seen by Provider: 02/02/18 12:46 HPI/ROS: Chief complaint. Chest pain HPI. 82-year-old male presents emergency department with chest discomfort that began at 4:00 a.m.. He took some antacids with some relief of his chest discomfort. He describes it as aching and maybe pressure to the left anterior chest with some radiation to the left shoulder. Still present but better. Worse with deep breathing. He has chronic shortness of breath with exertion and he does not feel that this is worse. He also has a chronic cough that is not worse or different. No fever. He has no unusual leg pain or swelling. ROS Constitutional. no fever/chills, no weakness Eyes. no problems with vision ENT. no sore throat, no nasal drainage Cardiovascular. Chest discomfort Respiratory. no shortness of breath, no cough Abdominal. no abdominal pain, no nausea/vomiting, no diarrhea . no problems urinating MS. no calf pain/swelling, no neck/back pain, no joint pain Skin. no rash Lymph. no swollen glands Neuro. no headache, no dizziness, no difficulty walking or with speech Past Medical/Surgical History: Past medical history COPD, coronary artery disease, BPH, pulmonary embolus, angioplasty Social History: , nonsmoker, no alcohol Smoking Status: Former smoker Physical Exam: General Appearance: Alert pleasant well-developed male mild distress vital signs are stable Eyes: Pupils equal and round no pallor or injection. ENT, Mouth: Mucous membranes are moist. Respiratory: There are no retractions, lungs are clear to auscultation. Cardiovascular: Regular rate and rhythm. Gastrointestinal: Abdomen is soft and nontender, no masses, bowel sounds normal. Neurological: Awake and alert, sensory and motor exams grossly normal. Skin: Warm and dry, no rashes. Musculoskeletal: Neck is supple nontender. Extremities symmetrical, full range of motion. Psychiatric: Patient is oriented X 3, there is no agitation. Constitutional: Initial Vital Signs Temperature (C) 37.1 C 02/02/18 12:23 Heart Rate 69 02/02/18 12:23 Respiratory Rate 18 02/02/18 12:23 Blood Pressure 144/73 H 02/02/18 12:23 O2 Sat (%) 86 L 02/02/18 12:23 O2 Delivery Mode Room Air O2 (L/minute) 2 Allergies/Adverse Reactions: No Known Allergies Allergy (Verified 02/02/18 12:21) Home Medications: Medication Instructions Recorded Aspirin EC [Aspirin EC 81 mg (*)] 81 mg PO DAILY #0 05/05/16 Atorvastatin Calcium [Lipitor 20 20 mg PO DAILY 05/05/16 mg (*)] Dexlansoprazole [Dexilant] 60 mg PO DAILY 05/05/16 Dutasteride [Avodart 0.5 MG (*)] 0.5 mg PO HS #0 05/05/16 Isosorbide Dinitrate [Isosorbide 20 mg PO HS 05/05/16 Dinitrate 20 mg (*)] Tamsulosin HCl [Flomax 0.4 MG (*)] 0.8 mg PO HS #0 05/05/16 Psyllium Husk (with Sugar) 1 each PO DAILY 01/24/17 [Metamucil Packet] Acetaminophen [Tylenol 325mg (*)] 650 mg PO Q4HRS PRN #0 tab 01/26/17 guaiFENesin [Mucinex 600 MG (*)] 1,200 mg PO BID #0 tab.er 01/26/17 Medical Decision Making - Diagnostics EKG Interpretation: EKG interpreted by me shows normal sinus rhythm normal interval and axis. QRS is normal. Possible old anterior lateral infarct. Some inferior T-wave flattening. No arrhythmia. The rate is 67. No change from previous EKG 01/26/2017 Imaging Results: Imaging Impressions Chest X-Ray 02/02/18 12:56 Impression: 1. Mild increased markings at the lung bases left side more than right could represent some mild dependent atelectasis or edema. 2. Stable biapical pleural thickening right side more than left. Procedures: IV normal saline, monitor ED Course/Re-evaluation: Re-evaluation 2:55 p.m.--patient is stable however does have slight left anterior chest discomfort. He and I discussed laboratory evaluation, imaging study, EKG findings. While there are no acute findings or changes on his EKG the patient does have known coronary artery disease and continues to have some discomfort. I have recommended admission for further evaluation however he wants to be treated as an outpatient. He does have a pressure controller that he agrees he will follow up with. He agrees he will return for worsening symptoms. Differential Diagnosis: I have considered pulmonary embolus as the patient has had previous pulmonary embolus and has pain with deep breathing. I have considered acute coronary syndrome as the patient has known coronary artery disease and has been having left anterior chest pain since 4:00 a.m.. I have also considered GI etiology as the patient reports that his discomfort is better with antacid therapy - Data Points Laboratory Results: Laboratory Results 02/02/18 12:35 02/02/18 12:35 02/02/18 02/02/18 02/02/18 12:35 12:35 12:35 WBC RBC Hgb Hct MCV MCH MCHC RDW Plt Count MPV Neut % (Auto) Lymph % (Auto) Taney % (Auto) Eos % (Auto) Baso % (Auto) Nucleat RBC Rel Count Absolute Neuts (auto) Absolute Lymphs (auto) Absolute Monos (auto) Absolute Eos (auto) Absolute Basos (auto) Absolute Nucleated RBC Immature Gran % Immature Gran # D-Dimer 0.31 ug/mLFEU ug/mLFEU (0.00-0.50) Sodium 139 mEq/L mEq/L (135-145) Potassium 4.5 mEq/L mEq/L (3.5-5.2) Chloride 105 mEq/L mEq/L (97-110) Carbon Dioxide 24 mEq/l mEq/l (22-31) Anion Gap 10 mEq/L mEq/L (8-16) BUN 13 mg/dL mg/dL (7-23) Creatinine 0.7 mg/dL mg/dL (0.7-1.3) Estimated GFR > 60 Glucose 110 mg/dL H mg/dL (70-100) Calcium 9.2 mg/dL mg/dL (8.5-10.4) Troponin I 0.023 ng/mL ng/mL (0.000-0.034) NT-Pro-B Natriuret Pep 340 pg/mL pg/mL (0-450) 02/02/18 12:35 WBC 6.35 10^3/uL 10^3/uL (3.80-9.50) RBC 4.55 10^6/uL 10^6/uL (4.40-6.38) Hgb 15.3 g/dL g/dL (13.7-17.5) Hct 45.1 % % (40.0-51.0) MCV 99.1 fL fL (81.5-99.8) MCH 33.6 pg pg (27.9-34.1) MCHC 33.9 g/dL g/dL (32.4-36.7) RDW 13.5 % % (11.5-15.2) Plt Count 165 10^3/uL 10^3/uL (150-400) MPV 12.0 fL H fL (8.7-11.7) Neut % (Auto) 65.1 % % (39.3-74.2) Lymph % (Auto) 14.2 % L % (15.0-45.0) Taney % (Auto) 19.4 % H % (4.5-13.0) Eos % (Auto) 0.8 % % (0.6-7.6) Baso % (Auto) 0.2 % L % (0.3-1.7) Nucleat RBC Rel Count 0.0 % % (0.0-0.2) Absolute Neuts (auto) 4.14 10^3/uL 10^3/uL (1.70-6.50) Absolute Lymphs (auto) 0.90 10^3/uL L 10^3/uL (1.00-3.00) Absolute Monos (auto) 1.23 10^3/uL H 10^3/uL (0.30-0.80) Absolute Eos (auto) 0.05 10^3/uL 10^3/uL (0.03-0.40) Absolute Basos (auto) 0.01 10^3/uL L 10^3/uL (0.02-0.10) Absolute Nucleated RBC 0.00 10^3/uL 10^3/uL (0-0.01) Immature Gran % 0.3 % % (0.0-1.1) Immature Gran # 0.02 10^3/uL 10^3/uL (0.00-0.10) D-Dimer Sodium Potassium Chloride Carbon Dioxide Anion Gap BUN Creatinine Estimated GFR Glucose Calcium Troponin I NT-Pro-B Natriuret Pep Departure - Departure Disposition: Home, Routine, Self-Care Clinical Impression: Chest pain Qualifiers: Chest pain type: unspecified Qualified Code(s): R07.9 - Chest pain, unspecified Condition: Good Instructions: Chest Pain (ED) Additional Instructions: Easy activity. Return for worsening chest discomfort or trouble breathing. Recheck in 1 day for continuing symptoms. Referrals: Edmund Orozco MD [Primary Care Provider] - As per Instructions Javed Granger MD [Medical Doctor] - 1 day, if not improved
[2018-02-02 15:24] VITALS: BP 123/76; PULSE 70; TEMP 98.2; O2SAT 90
== END 2018-02-02 15:25 | disposition home or self-care (01) ==
DX: R07.9 Chest pain, unspecified (principal); J44.9 Chronic obstructive pulmonary disease, unspecified; I25.10 Atherosclerotic heart disease of native coronary artery without angina pectoris; Z87.891 Personal history of nicotine dependence; Z79.82 Long term (current) use of aspirin

== ENCOUNTER 2018-08-14 10:57 | Emergency (ER) | payer OTHER, BC ==
[2018-08-14 11:08] VITALS: BP 114/60
--- NOTE | 2018-08-14 11:25 | EDPHY ---
H & P Time Seen by Provider: 08/14/18 11:15 HPI/ROS: CHIEF COMPLAINT: Left pretibial erythema and wound HISTORY OF PRESENT ILLNESS: 83-year-old male with up-to-date tetanus states that 1 week ago he sustained a mechanical fall impacted his left pretibial region sustaining laceration abrasion which he cleaned himself and has been cleaning regularly with hydrogen peroxide. He became concerned because of new halo erythema. He is able to bear full weight. He denies calf pain or swelling. Denies underlying osseous discomfort. Denies fever chills. Denies flu-like symptoms. PHYSICAL EXAM (Prior to examination, patient consented to physical exam, hands were washed and my usual and customary physical exam procedures followed) 1) GENERAL: Well-developed, well-nourished, alert and oriented. Appears to be in no acute distress. 2) HEAD: Normocephalic 3) HEENT: sclera anicteric 4) LUNGS: Breathing comfortably. 5) SKIN: Left pretibial region granulating abrasions with mild halo erythema. No lymphangitic streaking. No crepitus. 6) MUSCULOSKELETAL: Observed ambulating with stable steady gait in full weight-bearing. No underlying osseous discomfort to the tibia or fibula. No deformity no angulation. Brisk DP PT pulses distally. Negative Homans no palpable cord. Soft compartments Smoking Status: Former smoker Constitutional: Initial Vital Signs Temperature (C) 36.5 C 08/14/18 11:05 Heart Rate 56 L 08/14/18 11:05 Respiratory Rate 18 08/14/18 11:05 Blood Pressure 114/60 08/14/18 11:05 O2 Sat (%) 92 08/14/18 11:05 O2 Delivery Mode Room Air Allergies/Adverse Reactions: No Known Allergies Allergy (Verified 08/14/18 11:02) Home Medications: Medication Instructions Recorded Aspirin EC [Aspirin EC 81 mg (*)] 81 mg PO DAILY #0 05/05/16 Atorvastatin Calcium [Lipitor 20 20 mg PO DAILY 05/05/16 mg (*)] Dexlansoprazole [Dexilant] 60 mg PO DAILY 05/05/16 Dutasteride [Avodart 0.5 MG (*)] 0.5 mg PO HS #0 06/08/16 Tamsulosin HCl [Flomax 0.4 MG (*)] 0.8 mg PO HS #0 05/05/16 Psyllium Husk (with Sugar) 1 each PO DAILY 01/24/17 [Metamucil Packet] Acetaminophen [Tylenol 325mg (*)] 650 mg PO Q4HRS PRN #0 tab 01/26/17 Cephalexin [Keflex] 500 mg PO TID 7 Days cap 08/14/18 MDM/Departure - [facility] ED Course/Re-evaluation: This patient has evidence of early infection to his traumatic abrasions site. Doubt fracture. Doubt compartment syndrome. Doubt DVT. No history of recurrent skin infections or cutaneous MRSA history. Will prescribe monotherapy with Keflex. Given usual customary wound precautions instructions. Recommend follow up with his primary care provider. He feels comfortable being discharged. All questions and concerns addressed by myself. I saw this patient independently based on established practice protocols. Care of patient under supervision of secondary supervising physician Dr Johnson . - Depart Disposition: Home, Routine, Self-Care Clinical Impression: Left pretibial infected abrasion Condition: Good Instructions: Wound Infection (ED) Additional Instructions: Return to the ER if you develop redness, swelling, discharge, warmth to the wound, red streaks going up your leg, or any other symptoms that concern you. You were seen in the ER today, 08/14/18. I recommend you do not travel for the next 1 week. Stand Alone Forms: Airline Excuse Prescriptions: Cephalexin [Keflex] 500 mg PO TID 7 Days cap Referrals: Edmund Orozco MD [Primary Care Provider] - 2-3 days, call for appt.
== END 2018-08-14 11:45 | disposition home or self-care (01) ==
DX: S80.212A Abrasion, left knee, initial encounter (principal); W19.XXXA Unspecified fall, initial encounter

== ENCOUNTER → 2018-09-12 | Outpatient (CLI) | payer OTHER, BC | LOC: BHLMT 15:30 | PROVIDERS: ATTEND Internal Medicine | DX: I35.9 Nonrheumatic aortic valve disorder, unspecified (principal); I25.10 Atherosclerotic heart disease of native coronary artery without angina pectoris | CPT/HCPCS: 93306-PO ==